=== PATIENT | female | born 2000 | race African-American/Black ===

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

== ENCOUNTER 2019-01-14 08:18 | Outpatient (CLI) | payer OTHER ==
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
== END 2019-01-14 08:19 | disposition home or self-care (01) ==
LOC: BICULT 08:18
PROVIDERS: ATTEND Family Medicine
DX: O09.892 Supervision of other high risk pregnancies, second trimester (principal); Z3A.21 21 weeks gestation of pregnancy; O32.1XX0 Maternal care for breech presentation, not applicable or unspecified; Z37.9 Outcome of delivery, unspecified
CPT/HCPCS: 76805

== ENCOUNTER 2019-05-04 15:59 | Inpatient (IN) | payer OTHER ==
[2019-05-04 16:28] VITALS: BMI 38.3
[2019-05-04] MEDS ORDERED: hydrALAZINE 20 MG/ML VIAL SLOW IVP PRN (17:44)
[2019-05-04] MEDS ORDERED: Docusate 100 MG CAP PO PRN (17:44)
[2019-05-04] MEDS ORDERED: Promethazine HCl 25 MG/ML VIAL IM PRN (17:44)
[2019-05-04] MEDS ORDERED: Ondansetron PF 4 MG/2 ML Vial IVP PRN (17:44)
[2019-05-04 18:05] LABS: Hemoglobin 11.8 g/dL (12.0-16.0); Mean Corpuscular HGB CONC 29.1 g/dL (32.0-36.0); Platelet Count 191 thou/uL (130-400); RBC Distribution Width 14.4 % (11.5-14.5); Red Blood Cell (RBC) Count 4.71 mill/uL (4.00-5.20); White Blood Cell (WBC) Count 7.6 thou/uL (4.8-10.8)
[2019-05-04 18:25] LABS: ALT (SGPT) 12 U/L (8-55); AST (SGOT) 21 U/L (5-30); Albumin 2.7 g/dL (3.5-5.0); Alkaline Phosphatase 157 U/L (40-100); Anion Gap 11 mmol/L (10-20); BUN (Urea Nitrogen) 13 mg/dL (8.4-21.0); Bilirubin, Total 0.2 mg/dL (0.2-1.2); Calc. Creatinine Clearance 137 mL/min (70-130); Calcium 8.1 mg/dL (7.8-10.44); Carbon Dioxide 23 mmol/L (22-29); Chloride 107 mmol/L (98-107); Estimated GFR-MDRD Greater than 90; Globulin 2.5 g/dL (2.4-3.5); Glucose 90 mg/dL (70-105); Potassium 4.1 mmol/L (3.5-5.1); Protein, Total 5.2 g/dL (6.0-8.3); Sodium 137 mmol/L (136-145)
[2019-05-04 18:39] LABS: HBSAg Index 0.14 S/CO (0-0.99); Hep B Surf Ag Non-Reactive S/CO (NonReactive); Syphilis Antibody Nonreactive (Nonreactive); Syphilis Antibody Index 0.02 S/CO (<1.00 Non-Reactive)
[2019-05-04 19:28] LABS: Creatinine, Urine 147.59 mg/dL (47-110)
--- NOTE | 2019-05-04 19:40 | ULT ---
LIMITED OBSTETRICAL ULTRASOUND FOR BIOPHYSICAL PROFILE INDICATION: Hypertension TECHNIQUE: Grayscale, M-mode Doppler, color Doppler and spectral Doppler images were obtained. Biophy sical profile was submitted by the pressure testing technician. Imaging is focused on the clinical indication. COMPARISON: January 14, 2019 GESTATION: Number of gestations: Single. Presentation: Cephalic. heart rate: 143 bpm. Placental location: Anterior Cervical length: Not measured THOM: 7.2 cm. Biophysical profile: tone: 2 out of 2. breathin out of 2 movements: 2 out of 2 Amniotic fluid level: 2 out of 2 IMPRESSION: 1. Biophysical profile of 8 out of 8
[2019-05-04] MEDS ORDERED: hydrOXYzine Pamoate 25 mg Capsule PO SCH (21:30)
[2019-05-05] MEDS ORDERED: Bicitra 30 ML UDCUP PO SCH (07:15)
[2019-05-05] MEDS ORDERED: CEFAZOLIN 2 GM in Premix Bag 1 BAG IVPB SCH (07:15)
[2019-05-05] MEDS: Acetaminophen 500 MG TAB PO PRN ×2 (07:37→13:59)
[2019-05-05] MEDS ORDERED: MORPHINE 5 MG/10 ML PF VIAL ONE (16:25)
[2019-05-05] MEDS ORDERED: Fentanyl 100 MCG/2 ML VIAL ONE (16:25)
[2019-05-05] MEDS ORDERED: PHENYLEPHRINE-NS 100 MCG/ML 10 ML SYRINGE ONE (16:26)
[2019-05-05] MEDS ORDERED: Oxytocin 10 UNITS/ML VIAL ONE (16:26)
[2019-05-05] MEDS ORDERED: Ondansetron PF 4 MG/2 ML Vial ONE ×2 (16:26→19:38)
[2019-05-05] MEDS ORDERED: FLU VACC QS2019-20(6MOS UP)/PF 60 MCG/0.5 ML SYRINGE IM ONE (16:45)
[2019-05-05] MEDS ORDERED: Communication Order-Pharmacy FS SCH (17:15)
[2019-05-05] MEDS ORDERED: Promethazine HCl 25 MG SUPP PR PRN (17:15)
[2019-05-05] MEDS ORDERED: Ondansetron PF 4 MG/2 ML Vial IVP PRN ×2 (17:15→19:35)
[2019-05-05] MEDS ORDERED: Promethazine HCl 25 MG/ML VIAL IM PRN ×2 (17:15→19:35)
[2019-05-05] MEDS ORDERED: Naloxone HCl 0.4 mg/ml Vial IV PRN (17:15)
[2019-05-05] MEDS ORDERED: Naloxone HCl 0.4 mg/ml Vial IVP PRN ×2 (17:15)
[2019-05-05] MEDS ORDERED: Ondansetron HCl/PF 4 MG/2 ML Vial IVP PRN ×2 (17:15→19:44)
[2019-05-05] MEDS ORDERED: Ketorolac Tromethamine 30 MG/ML VIAL ONE ×2 (17:28→19:38)
[2019-05-05] MEDS ORDERED: Oxymetazoline HCl 0.05% (30 ML BOT) NS SCH (17:30)
[2019-05-05] MEDS ORDERED: cloNIDine 0.1 MG TAB PO PRN (17:56)
[2019-05-05] MEDS: Acetaminophen 1,000 MG in Premix Bag 1 BAG IVPB PRN (19:10)
[2019-05-05] MEDS ORDERED: hydrALAZINE 20 MG/ML VIAL SLOW IVP PRN (19:35)
[2019-05-05] MEDS ORDERED: diphenhydrAMINE 25 MG CAP PO PRN (19:35)
[2019-05-05] MEDS ORDERED: Lanolin Ointment 7 GM TUBE TOP PRN (19:35)
[2019-05-05] MEDS ORDERED: NS / Oxytocin 40 units/1000ml 1,000 ML IV SCH (19:35)
[2019-05-05] MEDS ORDERED: Bisacodyl 10 MG SUPP PR PRN (19:35)
[2019-05-05] MEDS ORDERED: HYDROmorphone 2 MG/ML VIAL SLOW IVP PRN ×2 (19:44→20:13)
[2019-05-05] MEDS ORDERED: Meperidine HCl/PF 25 MG/ML VIAL SLOW IVP PRN (19:44)
[2019-05-05] MEDS ORDERED: L&D-Morphine 4 MG/ML VIAL SLOW IVP PRN (19:44)
[2019-05-05] MEDS ORDERED: Ferrous Sulfate 325 MG TAB PO SCH (20:00)
[2019-05-05] MEDS: Ketorolac Tromethamine 30 MG/ML VIAL IVP SCH ×2 (21:38→23:42)
[2019-05-05] MEDS: Docusate Calcium (SURFAK) 240 MG CAP PO SCH (21:41)
[2019-05-05] MEDS: diphenhydrAMINE 50 MG/ML VIAL IVP PRN (21:53)
[2019-05-06] MEDS: Acetaminophen 1,000 MG in Premix Bag 1 BAG IVPB PRN (00:41)
[2019-05-06] MEDS: Simethicone Chewable 80 MG TAB PO PRN ×3 (01:49→21:43)
[2019-05-06] MEDS: diphenhydrAMINE 50 MG/ML VIAL IVP PRN (02:01)
[2019-05-06] MEDS ORDERED: Meperidine HCl/PF 25 MG/ML VIAL IM PRN (05:15)
[2019-05-06] MEDS: Ketorolac Tromethamine 30 MG/ML VIAL IVP SCH (05:52)
[2019-05-06 06:40] LABS: Hemoglobin 9.9 g/dL (12.0-16.0); Mean Corpuscular HGB CONC 33.1 g/dL (32.0-36.0); Mean Corpuscular Hemoglobin 28.5 pg (25.0-35.0); Mean Platelet Volume 9.6 fL (7.4-10.4); Platelet Count 157 thou/uL (130-400); RBC Distribution Width 14.5 % (11.5-14.5); Red Blood Cell (RBC) Count 3.47 mill/uL (4.00-5.20); White Blood Cell (WBC) Count 7.8 thou/uL (4.8-10.8)
[2019-05-06] MEDS ORDERED: Adacel (T-DAP) 0.5 ML SYRINGE IM ONE (09:00)
[2019-05-06] MEDS: Ferrous Sulfate 325 MG TAB PO SCH ×2 (09:09→17:33)
[2019-05-06] MEDS: Amlodipine 5 MG TAB PO SCH (09:09)
[2019-05-06] MEDS: Prenatal Vitamin 1 TAB PO SCH (09:10)
[2019-05-06] MEDS: HYDROcodone/Acetaminophen 5/325 mg Tablet PO PRN ×4 (09:10→21:44)
[2019-05-06] MEDS: Docusate Calcium (SURFAK) 240 MG CAP PO SCH ×2 (09:10→21:43)
[2019-05-06] MEDS: Ibuprofen 800 MG TAB PO SCH ×2 (14:11→21:43)
[2019-05-07] MEDS: HYDROcodone/Acetaminophen 5/325 mg Tablet PO PRN ×4 (06:54→23:17)
[2019-05-07] MEDS: Ibuprofen 800 MG TAB PO SCH ×3 (06:55→21:19)
[2019-05-07] MEDS: Ferrous Sulfate 325 MG TAB PO SCH ×2 (08:39→09:09)
[2019-05-07] MEDS: Docusate Calcium (SURFAK) 240 MG CAP PO SCH ×2 (09:09→21:19)
[2019-05-07] MEDS: Amlodipine 5 MG TAB PO SCH (09:10)
[2019-05-07] MEDS: Prenatal Vitamin 1 TAB PO SCH (09:11)
[2019-05-08] MEDS: Ibuprofen 800 MG TAB PO SCH ×2 (06:09→13:33)
[2019-05-08] MEDS: HYDROcodone/Acetaminophen 5/325 mg Tablet PO PRN ×4 (06:10→13:38)
[2019-05-08 07:58] VITALS: BP 139/79; TEMP 98.5
[2019-05-08] MEDS: Ferrous Sulfate 325 MG TAB PO SCH (09:33)
[2019-05-08] MEDS: Prenatal Vitamin 1 TAB PO SCH (09:33)
[2019-05-08] MEDS: Amlodipine 5 MG TAB PO SCH (09:34)
[2019-05-08] MEDS: Docusate Calcium (SURFAK) 240 MG CAP PO SCH (09:34)
[2019-05-08] MEDS: Simethicone Chewable 80 MG TAB PO PRN ×2 (09:37→13:34)
--- NOTE | 2019-05-11 05:09 | OP ---
DATE OF PROCEDURE: 05/05/2019 RESIDENT SURGEON: Juana Schwab DO PROCEDURE PERFORMED: Repeat low-transverse section. PREOPERATIVE DIAGNOSES: 1. Term intrauterine . 2. Elevated blood pressures with recently diagnosed preeclampsia. 3. Previous section. POSTOPERATIVE DIAGNOSES: 1. Term intrauterine , delivered. 2. Elevated blood pressures with recently diagnosed preeclampsia. 3. Previous section. ANESTHESIA: Spinal. INDICATIONS: This is a 18-year-old G3, P1-0-1-1 at 37 and 1 weeks gestation, who initially presented to Labor and Delivery for elevated blood pressures. She was also found to have 3+ protein in her urine. Given new onset preeclampsia and history of previous section along with continued elevated blood pressures, a decision was made to proceed with section. PROCEDURE IN DETAIL: After risks, benefits, and alternatives were explained to the patient, she gave informed consent. Preoperative antibiotics included cefazolin 2 g IV. The patient was taken to the operating room and spinal anesthesia was initiated. She was placed in the supine position with a left tilt, and prepped and draped in the usual sterile fashion. The Pfannenstiel incision was made with a scalpel and carried down to the level of the fascia, which was sharply nicked. The fascial cut was extended bilaterally with Alvares scissors. Inferior and superior edges of the cut fascial edges were elevated with Nasir clamps. The underlying rectus muscles were sharply and bluntly dissected free. The recti were divided digitally and retracted manually. The peritoneum was entered bluntly and retracted manually. Bladder blade was placed. A low-transverse score was made with scalpel. The uterus was entered in the midline with a scalpel. Clear fluid was seen. Hysterotomy was extended manually. was noted to be vertex and was easily delivered by fundal pressure. Mouth and nares were bulb suctioned. Cord was clamped and cut. The grossly normal female was handed to the awaiting nurse. Cord blood was collected. Placenta was manually extracted and found to be intact with three-vessel cord and discarded. The uterus was externalized. The endometrium was curetted with a dry lap. The bladder blade was placed and the uterus was closed with a running locking #1 Monocryl suture followed by ycyzet-op-ycyuk stitches for hemostasis. Seprafilm was placed. Abdomen was irrigated with saline and suctioned free of clots. The uterus was internalized and hysterotomy was again noted to be hemostatic. The peritoneum was closed using 3-0 Vicryl. The fascia was closed with running nonlocking 0 PDS suture. Subcutaneous tissue was irrigated and bleeders were cauterized. Subcutaneous tissue was brought together using 2-0 plain gut. The skin was approximated with nani and pressure dressing was placed. All counts were correct. The patient tolerated the procedure well, was taken to recovery room in stable condition. QUANTITATIVE BLOOD LOSS: 499 mL. COMPLICATIONS: None. SPECIMENS: Cord blood sent to lab for blood type. FINDINGS: Grossly normal female with Apgars of 8 and 9 at 1 and 5 minutes respectively. Grossly normal placenta with 3-vessel cord discarded. DRAINS: Chaudhary to gravity, draining clear urine. Job ID: [id number]
== END 2019-05-08 18:00 | disposition home or self-care (01) | DRG 788 ==
LOC: L&D/OP 15:59 → L&D 18:34 → 3SW 05-05 21:03
PROVIDERS: ADMIT Family Medicine; ATTEND Family Medicine
PROC: 10D00Z1 Extraction of Products of Conception, Low, Open Approach (ICD-10-PCS; principal; 2019-05-05)
DX: O34.211 Maternal care for low transverse scar from previous cesarean delivery (principal); O14.94 Unspecified pre-eclampsia, complicating childbirth; Z3A.37 37 weeks gestation of pregnancy; Z37.0 Single live birth
CPT/HCPCS: 36415; 51702; 76819; 80053; 82570; 84156; 85027; 86780; 86850; 86900; 86901; 87340; J0131; J0360; J0690; J1170; J1200; J1885; J2274; J2405; J2590; J3010; Q0177